=== PATIENT | male | born 1980 | race Two or more races ===

== ENCOUNTER 2019-12-08 12:13 | Emergency (ER) | payer SELFPAY ==
[~2019-12-08] VITALS: Ht 165.1 cm; Wt 82.5 kg
[2019-12-08 12:35] VITALS: BP 147/86
[2019-12-08] MEDS ORDERED: DIPH,PERTUSS(ACELL),TET VAC/PF 0.5 ML SYRINGE. VAX IM ONE (13:00)
--- NOTE | 2019-12-08 13:22 | PHYS DOC ---
Past Medical History Past Medical History: No Pertinent History Past Surgical History: Other Smoking Status: Never Smoker Alcohol Use: None Adult General Chief Complaint Chief Complaint: LACERATION/AVULSION HPI HPI Patient is a 39 year old male who presents with patient was cleaning his floor with a box knife in the box knife slipped and that tip stabbed him in the left dorsal hand on the radial side. This happened today. He rates his pain a 4 out of 10. He does need a tetanus shot. Review of Systems Review of Systems Integument: Left hand laceration. Denies rash or skin lesions [] All other systems were reviewed and found to be within normal limits, except as documented in this note. Current Medications Current Medications Current Medications Medications (Trade) Dose Ordered Sig/Kathy Start Time Stop Time Status Last Admin Dose Admin Diphtheria/ Tetanus/Acell Pertussis (ADACEL TDap SYRINGE) 0.5 ml ONCE ONCE 12/08/19 13:00 12/08/19 13:16 DC 12/08/19 13:21 0.5 ML Lidocaine/ Epinephrine (LIDOCAINE 1%-EPI 1:100,000 Multi-Dose) 20 ml 1X ONCE 12/08/19 13:30 12/08/19 13:31 DC 12/08/19 13:29 20 ML Allergies Allergies Allergies Coded Allergies Type Severity Reaction Last Updated Verified No Known Drug Allergies 12/08/19 No Physical Exam Physical Exam Constitutional: Well developed, well nourished, no acute distress, non-toxic sparkle earance. [] HENT: Normocephalic, atraumatic, bilateral external ears normal, oropharynx moist, no oral exudates, nose normal. [] Eyes: PERRLA, EOMI, conjunctiva normal, no discharge. [] Neck: Normal range of motion, no tenderness, supple, no stridor. [] Cardiovascular:Heart rate regular rhythm, no murmur [] Lungs & Thorax: Bilateral breath sounds clear to auscultation [] Abdomen: Bowel sounds normal, soft, no tenderness, no masses, no pulsatile masses. [] Skin: Warm, dry, no erythema, no rash. Left hand laceration. [] Back: No tenderness, no CVA tenderness. [] Extremities: No tenderness, no cyanosis, no clubbing, ROM intact, no edema. [] Neurologic: Alert and oriented X 3, normal motor function, normal sensory function, no focal deficits noted. [] Psychologic: Affect normal, judgement normal, mood normal. [] Current Patient Data Vital Signs Vital Signs Date Time Temp Pulse Resp B/P (MAP) Pulse Ox O2 Delivery O2 Flow Rate FiO2 12/08/19 12:35 98.0 58 18 147/86 (106) 97 Room Air 98.0 EKG EKG [] Radiology/Procedures Radiology/Procedures [] Impressions: [facility] [address] [place] [address] IMAGING REPORT Signed PATIENT: AD TELLEZOACCOUNT: [id number] : 1980 LOCATION: ER AGE: 39 SEX: M EXAM STATUS: REG ER ORD. PHYSICIAN: AMBER TAYLOR APRN REASON: puncture PROCEDURE: HAND LEFT 3V []Exam performed: Left hand 3 views. Indication: Injury. Date of Service: 12/08/2019 Comparison: None available Discussion: PA, oblique lateral radiographs of the hand reveal the osseous structures to be intact and well aligned. The joint spaces are well-preserved. The articular margins are smooth. No soft tissue swelling or foreign bodies detected. Impression: Radiographically normal left hand. Electronically signed by: Rita Thomas MD (12/08/2019 1:20 PM) [id number] DICTATED and SIGNED BY: RITA THOMAS MD DATE: 12/08/19 1320 Course & Med Decision Making Course & Med Decision Making Pertinent Labs and Imaging studies reviewed. (See chart for details) Patient can make a fist and move all fingers with good strength and range of motion. No tendon involvement. No laxity in the joints. Their is a one and a half centimeter laceration to the left dorsal hand on the radial side just distal to the basal carpometacarpal. Laceration Repair by me: Anesthesia: 1% lidocaine locally Location: Radial side dorsal hand Tendon/Joint/Nerves: No injury Foreign body: None detected after copious irrigation with chlorhexidine and saline and exploration Technique: 3 Simple Interrupted Sutures Complexity: No subcutaneous sutures/mucosal repair/edge excision Post Closure Length: 1.5 cm Patient's bleeding was easily controlled in the department and there is no indication of anemia. No evidence of compartment syndrome, neurologic injury, vascular injury, open joint, tendon laceration, or foreign body. Patient is appropriate for outpatient follow up. 48 hour wound check. Scar minimization instructions given. [] Dragon Disclaimer Dragon Disclaimer This electronic medical record was generated, in whole or in part, using a voice recognition dictation system. Departure Departure Impression: Primary Impression: Laceration Disposition: HOME, SELF-CARE Admitting Physician: BRETT Condition: STABLE Referrals: NO PCP (PCP) Patient Instructions: Laceration Care, Adult Additional Instructions: Sutures need to be removed in 10 days. Watch for signs of infection. Keep the area clean and covered. AMBER TAYLOR APRN Dec 08, 2019 13:22
[2019-12-08] MEDS ORDERED: LIDOCAINE 1%/EPI 1:100,000 20 ML VIAL. INJ ONE (13:30)
== END 2019-12-08 14:50 | disposition home or self-care (01) ==
LOC: ER 12:13 → EDSEX 12:13 → ER 14:50
DX: S61.412A Laceration without foreign body of left hand, initial encounter (principal); W26.0XXA Contact with knife, initial encounter; Y93.E5 Activity, floor mopping and cleaning; Y92.89 Other specified places as the place of occurrence of the external cause; Y99.8 Other external cause status
CPT/HCPCS: 12001; 73130; 90471; 90715; 99283; J3490